=== PATIENT | male | born 1995 | race African-American/Black ===

== ENCOUNTER 2017-10-01 21:03 | Emergency (ER) | payer OTHER ==
[~2017-10-01] VITALS: Ht 188 cm; Wt 127.0 kg
--- NOTE | 2017-10-01 22:47 | NUR ---
Dr. Townsend at bedside for MSE.
--- NOTE | 2017-10-01 23:05 | NUR ---
Xray at bedside.
[2017-10-02] MEDS ORDERED: HYDROCODONE/APAP 10-325 MG TABLET PO ONE
[2017-10-02] MEDS ORDERED: HYDROCODONE/APAP 10-325 MG TABLET ONE (00:07)
--- NOTE | 2017-10-02 00:30 | NUR ---
Patient discharged to home in stable conditon. Written and verbal after care instructions given. Patient verbalizes understanding of instructions. Pt up out of bed using crutches with right knee and ankle immobilizer intact. All belongings taken. Received [place] medication prior to discharge.
[2017-10-02 00:39] VITALS: BP 120/81
== END 2017-10-02 00:40 | disposition home or self-care (01) ==
LOC: ER 21:06
DX: S82.841A Displaced bimalleolar fracture of right lower leg, initial encounter for closed fracture (principal); M23.91 Unspecified internal derangement of right knee; F17.200 Nicotine dependence, unspecified, uncomplicated; W22.8XXA Striking against or struck by other objects, initial encounter; Y93.89 Activity, other specified; Y92.89 Other specified places as the place of occurrence of the external cause; Y99.8 Other external cause status
CPT/HCPCS: 73610; 73630; A4663